=== PATIENT | female | born 1990 | race Caucasian/White ===

== ENCOUNTER → 2016-10-02 | Outpatient (CLI) | payer OTHER ==
[~2016-10-02] MED LIST: BACTROBAN OINT22 GM TOP; CIPRO250 MG PO; IMITREX50 MG PO; NAPROSYN250 MG PO; NORCO 5-325 TA1 EACH PO; PROAIR HFA8.5 GM INH; TRI-SPRINTEC T1 EACH PO
== END ==
LOC: KOH-I 14:29
DX: R51 Headache (principal)
CPT/HCPCS: 70450